=== PATIENT | male | born 1945 | race Caucasian/White ===

== ENCOUNTER 2017-05-31 08:30 | Outpatient (CLI) | payer MEDICARE ==
[2017-05-31] VITALS (13 sets, daily range): BP systolic 110–131; BP diastolic 48–93
[~2017-05-31] VITALS: Ht 175.3 cm; Wt 92.5 kg
[~2017-05-31 08:30] MED LIST: ABILIFY10 MG; ACETAMINOPHEN500 M3 PO; AMLO5TAB PO; AMOXICILLIN 50500 MG PO; ASCORBIC ACID500 M2 PO; ASPIRIN 81MG TA81 MG PO; AZITHROMYCIN250 MG PO; BACTRIM DS 8001 TA1 PO; BACTRIM DS 8001 TAB; BACTRIM DS 8001 TAB PO; CEFDINIR300 MG PO; CENTRUM1 TA2 PO; CEPHALEXIN500 MG PO; EFFIENT10 M2 PO; FLEXERIL10 MG PO; FLONASE 50 MCG16 GM; IBU-8800 MG PO; KEFLEX 500MG.500 MG PO; L-LYSINE1000 MG; LEVAQUIN500 MG PO; LIPITOR40 MG PO; LISINOPRIL 10MG10 MG PO; LISINOPRIL2.5 MG PO; LORTAB 5/500 501 TAB PO; LOSARTAN POTASS50 MG PO; MULTI VITAMINS1 TA1; MULTI VITAMINS1 TAB; NITROGLYCERIN0.4 MG SL; NOMEDS *; PLAVIX 75MG TAB75 MG PO; PROTONIX 40MG T40 MG PO; ROBITUSSIN120 ML/BOT PO; SINGULAIR10 MG PO; SYMBICORT1 AE1 IH; VALTREX500 MG; ZEBETA5 MG PO
[2017-05-31 10:18] LABS: HEMOGLOBIN 11.8 g/dL (14.1-18.0)
[2017-05-31 10:20] LABS: LYMPH # 16.7 K/mm3 (0.7-4.5); LYMPH % 73.9 % (10-50)
[2017-05-31 11:02] LABS: NEUTROPHILS 26 % (42-76)
== END 2017-05-31 14:45 | disposition home or self-care (01) ==
LOC: COP 08:30
PROVIDERS: Internal Medicine
DX: C91.10 Chronic lymphocytic leukemia of B-cell type not having achieved remission (principal)
CPT/HCPCS: J9310

== ENCOUNTER 2017-06-07 09:32 | Outpatient (CLI) | payer MEDICARE ==
[2017-06-07] VITALS (14 sets, daily range): BP systolic 110–145; BP diastolic 63–84
[~2017-06-07] VITALS: Ht 175.3 cm; Wt 92.5 kg
[2017-06-07 10:01] LABS: HEMOGLOBIN 12.6 g/dL (14.1-18.0)
[2017-06-07 10:02] LABS: LYMPH # 2.9 K/mm3 (0.7-4.5); LYMPH % 50.1 % (10-50)
[2017-06-07 10:07] LABS: BILIRUBIN, INDIRECT 0.82 mg/dL (0-0.9)
[2017-06-07 10:42] LABS: NEUTROPHILS 53 % (42-76)
== END 2017-06-07 14:05 | disposition home or self-care (01) ==
LOC: COP 09:32
PROVIDERS: Internal Medicine
DX: I25.10 Atherosclerotic heart disease of native coronary artery without angina pectoris (principal); I10 Essential (primary) hypertension; E78.5 Hyperlipidemia, unspecified; Z51.11 Encounter for antineoplastic chemotherapy; C91.10 Chronic lymphocytic leukemia of B-cell type not having achieved remission
CPT/HCPCS: J1642; J9310

== ENCOUNTER → 2017-06-10 | Outpatient (CLI) | payer MEDICARE ==
[2017-06-12 14:37] LABS: Immunoglobulin M, Qn 11 mg/dL (20-172)
[2017-06-13 06:41] LABS: IgG, Subclass 1 332 mg/dL (248-810); IgG, Subclass 2 75 mg/dL (130-555); IgG, Subclass 3 48 mg/dL (15-102); IgG, Subclass 4 2 mg/dL (2-96); Immunoglobulin G, Qn 465 mg/dL (700-1600)
== END ==
LOC: LAB 16:09
PROVIDERS: Emergency Medicine
DX: C91.10 Chronic lymphocytic leukemia of B-cell type not having achieved remission (principal)

== ENCOUNTER 2017-06-14 09:29 | Outpatient (CLI) | payer MEDICARE ==
[2017-06-14] VITALS (13 sets, daily range): BP systolic 109–132; BP diastolic 49–73
[~2017-06-14] VITALS: Ht 175.3 cm; Wt 92.5 kg
[2017-06-14 09:20] LABS: HEMOGLOBIN 12.4 g/dL (14.1-18.0); LYMPH % 50.1 % (10-50)
[2017-06-14 09:46] LABS: NEUTROPHILS 51 % (42-76)
== END 2017-06-14 13:20 | disposition home or self-care (01) ==
LOC: COP 09:29
PROVIDERS: Internal Medicine
DX: C91.10 Chronic lymphocytic leukemia of B-cell type not having achieved remission (principal); Z51.11 Encounter for antineoplastic chemotherapy
CPT/HCPCS: J9310

== ENCOUNTER → 2017-06-19 | Outpatient (CLI) | payer MEDICARE ==
--- NOTE | 2017-06-19 21:08 | RADIOLOGY REPORT PS360 ---
PROCEDURE: 2-D M-mode and color Doppler study INDICATIONS FOR THE TEST: Chest pain COPD Heart Murmur Tobacco Smoking Palpitations Fatigue Syncope Edema HypertensionXDiabetes Mellitus Rheumatic Fever SOB VERDUZCO Obesity HyperlipidemiaX Family History HD Additional History CAD H/O LEUKEMIA RITAXAN THERAPY PATIENT INFORMATION HEIGHT: 69 WEIGHT:204 GENDER: Male B/P:130/76 2-D/M-MODE INTERPRETATION: 2-D MEASUREMENTS OBSERVED VALUES IN CMS Right Ventricular Dimension (RVDd) 2.3 Interventricular Septum (Thickness)(IVsd) .8 Left Ventricular Internal Dimensions(LVIDd) 5.3 Left Ventricular Posterior Wall (Thickness)(LVPWd) .8 Aortic Root 3.2 Aortic Cusp Separation Left Atrial Dimensions (LAD) 4.0 2D 1. Left atrium is mildly enlarged, left ventricle is normal size, there is mild qualitative concentric left ventricular hypertrophy, visually estimated ejection fraction 55% with no obvious regional wall motion abnormality. 2. The right atrium and right ventricle are normal size and contractility. 3. The aortic valve is minimally thickened and fibrosed. 4. The mitral and tricuspid valve leaflets are minimally thickened. 5. The pulmonic valve is poorly visualized. 6. No significant pericardial effusion noted. DOPPLER INTERROGATION: Doppler interrogation of the aortic mitral and tricuspid valvular presence of mild mitral and tricuspid regurgitation, tricuspid and jet velocity insufficient for calculation of the right ventricular systolic pressure, grade 1 diastolic dysfunction seen without tissue Doppler evidence of raised left atrial pressure. CONCLUSION: 1. Mildly enlarged left atrium, normal left ventricular size, mild qualitative concentric left ventricular hypertrophy, visually estimated ejection fraction 55% with no obvious regional wall motion abnormality, grade 1 diastolic dysfunction seen without tissue Doppler evidence of raised left atrial pressure. 2. Mild mitral and tricuspid regurgitation. 3. No significant pericardial effusion noted.
== END ==
LOC: RT 14:53
DX: I25.10 Atherosclerotic heart disease of native coronary artery without angina pectoris (principal); I10 Essential (primary) hypertension; E78.5 Hyperlipidemia, unspecified; C91.10 Chronic lymphocytic leukemia of B-cell type not having achieved remission

== ENCOUNTER 2017-06-21 09:00 | Outpatient (CLI) | payer MEDICARE ==
[~2017-06-21] VITALS: Ht 175.3 cm; Wt 92.5 kg
[2017-06-21] VITALS (13 sets, daily range): BP systolic 112–148; BP diastolic 69–87
[2017-06-21 09:24] LABS: HEMOGLOBIN 12.2 g/dL (14.1-18.0); LYMPH # 3.5 K/mm3 (0.7-4.5); LYMPH % 51.5 % (10-50)
[2017-06-21 09:48] LABS: NEUTROPHILS 45 % (42-76)
== END 2017-06-21 13:30 | disposition home or self-care (01) ==
LOC: COP 09:00
PROVIDERS: Internal Medicine
DX: C91.10 Chronic lymphocytic leukemia of B-cell type not having achieved remission (principal); Z51.11 Encounter for antineoplastic chemotherapy
CPT/HCPCS: J1642; J9310

== ENCOUNTER 2017-07-19 08:45 | Outpatient (CLI) | payer MEDICARE ==
[~2017-07-19] VITALS: Ht 175.3 cm; Wt 92.5 kg
[2017-07-19] VITALS (13 sets, daily range): BP systolic 91–130; BP diastolic 53–80
[2017-07-19 09:23] LABS: HEMOGLOBIN 12.3 g/dL (14.1-18.0); LYMPH # 3.9 K/mm3 (0.7-4.5); LYMPH % 43.5 % (10-50)
== END 2017-07-19 13:40 | disposition home or self-care (01) ==
LOC: COP 08:45
PROVIDERS: Internal Medicine
DX: C91.10 Chronic lymphocytic leukemia of B-cell type not having achieved remission (principal); Z51.11 Encounter for antineoplastic chemotherapy
CPT/HCPCS: J1642; J9310